=== PATIENT | female | born 2005 | race Caucasian/White ===

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

== ENCOUNTER → 2023-02-13 | Outpatient (CLI) | payer OTHER, SELFPAY ==
--- NOTE | 2023-02-13 15:14 | RAD_ITS ---
INDICATION: pain EXAMINATION/TECHNIQUE: X-RAY - LEFT XR Knee Complete 4 Views COMPARISON: FINDINGS: SOFT TISSUES: No soft tissue swelling or gas. Calcifications at the distal infrapatellar ligament insertion upon the tibial tuberosity. BONES/JOINTS: No acute fracture or subluxation.. Normal alignment. Preservation of the joint space.. No sclerotic or destructive changes observed. RAD/Knee 4 or More Views IMPRESSION: Calcifications at the distal infrapatellar ligament insertion upon the tibial tuberosity. Electronically Signed: Kyle Bragg DO at 15:38 EDT ,
--- NOTE | 2023-02-13 15:15 | RAD_ITS ---
INDICATION: pain EXAMINATION/TECHNIQUE: X-RAY - RIGHT XR Knee Complete 4 Views or More 4 VIEWS COMPARISON: FINDINGS: BONES: No fracture demonstrated. JOINTS: No dislocation. SOFT TISSUES: Unremarkable. RAD/Knee 4 or More Views IMPRESSION: No evidence of fracture. Electronically Signed: Mary Alvarado MD at 7:21 EDT ,
== END | disposition home or self-care (01) ==
LOC: MTRAD 15:14
PROVIDERS: PCP Pediatrics; Referring Provider Orthopaedic Surgery Sports Medicine; Visit Provider Orthopaedic Surgery Sports Medicine
DX: M25.562 Pain in left knee (principal); M25.561 Pain in right knee
CPT/HCPCS: 73564

== ENCOUNTER 2023-03-26 12:00 | Outpatient (RCR) | payer OTHER, SELFPAY ==
--- NOTE | 2023-02-26 19:37 | HP.PTEVAL ---
Patient's Visit Information Visit Information Visit Information: BREANA JOHN is a 17 year old F referred to Physical Therapy by Dr. Hany Moreno MD with a diagnosis of KNEE PAIN RIGHT AND LEFT. Date of Evaluation: 02/26/23 Physical Therapist: Mike Dong, PT, Cert MDT, OCS Visit Plan Frequency: 2x /Week Duration: 4 Weeks Plan: PT INTERVETIONS ECCENTRICS QUADS ,STRENGTHEING HIP /HAMSTRINGS ,FUNCTIONAL STRENGTHENING ,SPORT SIMULATION AND MODALTIES FOR PAIN Subjective Subjective: This 17 y/o female presents to physical therapy with knee pain and left and right . Patient has had knee left > right since October . But pain symptoms worse since January playing softball . Patient was running toward base and hip hard with leg and felt sharp pain. Initially, always c/o ache but during activity running and softball playing was better. Seen Josh did x-rays-. Patient location of pain tendon patella with h/o Whitley Schlatter's. Aggravating running ,weight bearing, squatting and kneeling,. Alleviating factors resting ,ice . General activity with walking and standing okay Denies paresthesia/tingling . Patient sleeping good. Patient had same condition 10 y/o s . Patient pain affects playing softball . Patient goals play softball with no pain. [employer]: [employer] : Softball Pain Left Knee: Pain Intensity (Out of 10): 4 Pain Intensity Range: 10 Right Knee: Pain Intensity (Out of 10): 0 Pain Intensity Range: 10 Objective Objective: POSTURE: mild knee valgus PALPATION: tender patella tendon NEURO: Denies paresthesia/tingling, reflexes intact AROM: 0-140 degrees supine knee flexion pain with OP knee flexion left MMT: ( peak force) quads right 31.2,left 49.8 ,hamstrings 30.3 left ,right 31.2 ,hip abduction right 32.2 ,left 31.8 FLEXABLITY: hamstrings min tight, quads left pain WFL left Special Tests R Knee Fern - Meniscus: Negative R Knee Jessica - ACL: Negative R Knee Anterior Drawer - ACL: Negative R Knee Posterior Drawer - PCL: Negative R Knee Posterior Sag - PCL: Negative R Knee Valgus - MCL: Negative R Knee Patellar Grind - PFS: Negative L Knee Fern - Meniscus: Negative L Knee Jessica - ACL: Negative L Knee Anterior Drawer - ACL: Negative L Knee Pivot Shift - ACL, Ant. Rotator Instability: Negative L Knee Valgus - MCL: Negative L Knee Varus - LCL: Negative L Knee Patellar Grind - PFS: Negative Balance/Special Test Scores Lower Extremity Functional Score: 51 Goals Goal 1:: Patient to be I with HEP for knee Goal Time Frame: 4-6 Weeks Goal 2:: Patient to demonstrate 75 % improvement with decrease pain and softball Goal Time Frame: 4-6 Weeks Goal 3:: Patient to be improve peak force with quads/hamstrings/hip by 10 # to improve function Goal Time Frame: 4-6 Weeks Goal 4:: Patient to improve ;FES score by 10 points to improve function. Goal Time Frame: 4-6 Weeks Goal 5:: Patient to improve sport simulating activity without activity Goal Time Frame: 4-6 Weeks Rehabilitation Potential Physical Therapy Diagnosis: This patient has left knee pain > right with patella tendonitis /tendinosis ,with weakness quads and hips > left than right pain with squatting and running and unable to return to softball thus benefit from skilled PT Rehabilitation Potential: Good Anticipated Interventions Patient/Client Instruction: Educate patient on: Condition and Plan of Care For the Purpose of:: To decrease pain, To increase ROM, To improve muscle performance and motor function, To improve ability to perform ADL's, To improve ability of physical actions for home/community/work/leisure, To improve health of tissue, To decrease soft tissue restriction, To increase flexibility/ROM, To reduce risk of recurrence and To improve tolerance to ADL's Other: RTS Therapeutic Exercise to Include: Strength training, Power training, Endurance training, Balance training, Postural training and Active ROM Comment: QUADS ECCENTRICS For the Purpose of:: To decrease pain, To increase ROM, To improve muscle performance and motor function, To improve ability to perform ADL's, To increase tolerance to activity/condition/position, To improve ability of physical actions for home/community/work/leisure, To improve gait and locomotor functions, To decrease soft tissue restriction, To increase flexibility/ROM, To improve endurance and To prevent re-injury TENS: Yes IF ES: Yes Cryotherapy (ice pack, ice massage): Yes Thermo therapy (hot pack): Yes For the Purpose of:: To decrease pain, To decrease swelling/inflammation, To improve nutrient delivery to tissue, To increase oxygenation perfusion, To decrease soft tissue restriction and To increase flexibility/ROM Text: Thank you for the opportunity to evaluate your patient. For Medicare and Medicare HMO plans, please review the plan of care and approve it. It will need to be FAXED BACK to us at [phone] for Medicare purposes. For Medicare only, by signing this I certify the plan of care. Please let me know if there are questions or concerns regarding this plan of care. Physician Signature: Date:
--- NOTE | 2023-03-26 12:26 | HP.PTDCSUM ---
Discharge Summary D/C summary: It has been my pleasure to treat BREANA JOHN referred by Dr. Hany Moreno MD, with the diagnosis of KNEE PAIN RIGHT AND LEFT for a total of 50 visit(s). Discharge Date: 03/26/23 Please see the following information for a summary of their discharge status. Subjective Subjective: Patient is doing better/ Less tender Pain Left Knee: Pain Intensity (Out of 10): 1 Right Knee: Pain Intensity (Out of 10): 1 Overall Improvement % Improvement: 50 Objective Objective/Function: Objective: POSTURE: mild knee valgus PALPATION: tender patella tendon NEURO: Denies paresthesia/tingling, reflexes intact AROM: 0-140 degrees supine knee flexion pain with OP knee flexion left MMT: ( peak force) quads right 54.1, 45.0,left 49.8 ,hamstrings 53.0 left ,right 62.2 ,hip abduction right 32.2 ,left 31.8 FLEXABLITY: hamstrings min tight, quads left pain WFL left Goals Goal 1:: Patient to be I with HEP for knee Goal Progress: Goal Met Goal 2:: Patient to demonstrate 75 % improvement with decrease pain and softball Goal Progress: Progressing Goal 3:: Patient to be improve peak force with quads/hamstrings/hip by 10 # to improve function Goal Progress: Goal Met Goal 4:: Patient to improve ;FES score by 10 points to improve function. Goal Progress: Goal Met Goal 5:: Patient to improve sport simulating activity without activity Goal Progress: Goal Met Plan Plan: D/C TO HEP D/C Information Discharge Comments: HEP d/c sentence: If there are questions or concerns regarding this patient's physical therapy, please feel free to call me at [phone]. Thank you for the referral of this patient. Sincerely, Mike Dong, PT, Cert MDT, OCS Balance/Gait/Functional tests Balance/Special Test Scores Lower Extremity Functional Score: 72
== END 2023-03-26 13:36 | disposition home or self-care (01) ==
LOC: PT 12:00
PROVIDERS: PCP Pediatrics; Visit Provider Orthopaedic Surgery Sports Medicine
DX: M25.561 Pain in right knee (principal); M25.562 Pain in left knee
CPT/HCPCS: 97110; 97161; 97530

== ENCOUNTER → 2024-07-09 | Outpatient (CLI) | payer OTHER, SELFPAY | END | disposition home or self-care (01) | LOC: LABSPEC 13:51 | PROVIDERS: PCP Pediatrics; Referring Provider Nurse Practitioner Women's Health; Visit Provider Nurse Practitioner Women's Health | DX: Z11.3 Encounter for screening for infections with a predominantly sexual mode of transmission (principal) | CPT/HCPCS: 87491; 87591 ==

== ENCOUNTER 2024-08-26 17:04 | Emergency (ER) | payer OTHER, SELFPAY ==
[2024-08-26] VITALS (9 sets, daily range): BP systolic 92–131; BP diastolic 63–80; PULSE 83–126; RESP 16–97; TEMP 36.9–39; O2SAT 97–99; BMI 26.0
--- NOTE | 2024-08-26 17:42 | EX.ED.DYSGE1 ---
HPI History of Present Illness Chief Complaint: Shortness of Breath Informant: patient Onset/Context/Timing Onset: Today Context: Gradual Onset Timing: Continuous Quality: Aching, sharp Location: Oropharynx, worse over the left Worsened by: Swallowing Relieved by: Nothing Narrative Narrative: Patient presents with sore throat that has been getting worse throughout the day today. Patient states it is constant. Patient went to urgent care and tested positive for RSV. Patient admits to a fever of 102. Patient states her pain is worse over the left side of her throat. Patient states her pain radiates into her left ear. Patient states it feels like she has some swelling in her throat weeks gives her some shortness of breath. Patient admits to nausea but denies any vomiting. Patient was given a prescription for liquid Augmentin but is only taken 1 dose. Patient states that her left tonsil is turning black and blue. [facility] Medical History RSV (acute bronchiolitis due to respiratory syncytial virus) Tonsillitis Bilateral anterior knee pain Left knee pain Right knee pain Knee pain Home Medications ?Medication ?Instructions ?Recorded ?Last Taken ?Type naproxen 500 mg tablet 500 mg PO BID-TID PRN pain #60 tabs 02/16/22 Unknown Rx etonogestrel 0.12 mg-ethinyl 1 vag ring vaginal Q4W #3 ea 07/09/24 Unknown Rx estradiol 0.015 mg/24 hr vaginal ring (NuvaRing) amoxicillin 400 mg-potassium 10 ml PO BID #200 mL 08/26/24 Unknown Rx clavulanate 57 mg/5 mL oral suspension hydrocodone 7.5 mg-acetaminophen 10 ml PO Q6H PRN pain 5 days #200 08/26/24 Unknown Rx 325 mg/15 mL oral solution mL Allergy/AdvReac Type Severity Reaction Status Date / Time No Known Allergies Allergy Verified 08/26/24 17:09 Family History Other Cancer Hypertension Myocardial infarction Social History Smoking Status: Never smoker alcohol intake: never substance use type: does not use caffeine: Yes what type of physical activity do you participate in: walking seatbelt use: always additional social history: Graduated from [employer] Working at [employer] in [place]. [employer]ball [employer] [place] 2021 ROS ROS ED Constitutional Constitutional ED: Denies chills or fever(s) Eyes Eyes: Denies blurry vision or change in vision ENT ENT ED: Reports ear pain left and sore throat; Denies rhinorrhea Cardiovascular Cardiovascular: Denies chest pain or palpitations Respiratory/Chest Respiratory/Chest: Denies cough or dyspnea Gastrointestinal Gastrointestinal: Reports nausea; Denies vomiting Genitourinary Genitourinary ED: Denies dysuria or hematuria Musculoskeletal Musculoskeletal: Denies back pain or neck pain Integumentary Denies abscess or rash Neurologic Neurologic: Denies headache(s) or weakness Allergic/Immunologic Allergic/Immunologic ED: Denies mouth swelling or urticaria EXAM Physical Exam Const Vital Signs: 08/26/24 17:09 08/26/24 17:11 08/26/24 17:34 Temperature 102.1 F H 102.1 F H Temperature Source Oral Oral Pulse Rate 126 H 126 H Respiratory Rate 18 18 Respiratory Effort Normal Respiratory Depth Normal Blood Pressure 126/80 H 126/80 H Blood Pressure Mean 95 95 Pulse Ox 98 98 Oxygen Delivery Method Room Air Room Air 08/26/24 18:08 08/26/24 18:57 08/26/24 19:00 Temperature 102.2 F H 102.2 F H Temperature Source Oral Oral Pulse Rate 107 H 112 H Respiratory Rate 16 18 18 Respiratory Effort Respiratory Depth Blood Pressure 131/75 H 128/78 H Blood Pressure Mean 93 94 Pulse Ox 98 99 98 Oxygen Delivery Method Room Air Room Air 08/26/24 20:00 08/26/24 21:00 08/26/24 21:33 Temperature 98.4 F Temperature Source Oral Pulse Rate 103 H 91 91 Respiratory Rate 97 H Respiratory Effort Respiratory Depth Blood Pressure 114/69 92/71 128/63 H Blood Pressure Mean 84 78 84 Pulse Ox 97 97 Oxygen Delivery Method Room Air Room Air Room Air 08/26/24 22:00 Temperature Temperature Source Pulse Rate 83 Respiratory Rate 18 Respiratory Effort Respiratory Depth Blood Pressure 119/63 Blood Pressure Mean 81 Pulse Ox 97 Oxygen Delivery Method Room Air Positive well nourished and well developed General Appearance ED: well developed and NAD HEENT Reports moist mucous membranes HEENT Narrative: There is ecchymosis over the left tonsil. There are exudates bilaterally. The tonsils are enlarged bilaterally Neck supple and no JVD Neck Narrative: There is tender anterior cervical lymphadenopathy, worse on the left. General: tenderness Resp normal respiratory effort and clear to auscultation bilaterally Cardio regular rhythm Rate: tachycardic GI non-tender and non-distended Palpation: soft Neuro oriented x3, CN's II-XII intact bilaterally and no sensory deficits noted Sensorium / Orientation: alert Motor Exam: strength 5/5 throughout Psych mental status grossly normal MDM MDM MDM Narrative Medical decision making narrative: Differential diagnosis includes peritonsillar abscess, parapharyngeal abscess, strep pharyngitis, dehydration, electrolyte abnormality, and viral pharyngitis. CT scan of the soft tissue neck will be obtained to assess for peritonsillar and parapharyngeal abscess. CBC will be obtained to assess for leukocytosis and anemia. Basic metabolic profile will be obtained to assess for electrolyte abnormality and renal function. Rapid strep will be obtained to assess for strep pharyngitis. His Lab Data Attestation: I reviewed the patient's lab results. Lab results narrative: CBC was reviewed. There is a leukocytosis of 15.2. The remainder is within normal limits. Basic metabolic profile was reviewed and was essentially within normal limits. Labs: Laboratory Results - last 24 hr 08/26/24 17:50 WBC 15.2 H RBC 4.69 Hgb 12.9 Hct 38.7 MCV 82.5 MCH 27.5 MCHC 33.3 RDW Std Deviation 37.4 RDW Coeff of Jesse 12.3 Plt Count 238 MPV 10.1 Immature Gran % (Auto) 0.300 Neut % (Auto) 89.2 H Lymph % (Auto) 6.7 L Pima % (Auto) 3.5 Eos % (Auto) 0.1 Baso % (Auto) 0.2 Absolute Neuts (auto) 13.5 H Absolute Lymphs (auto) 1.02 Nucleated RBC % 0 Sodium 135 L Potassium 3.3 L Chloride 102 Carbon Dioxide 25.0 Anion Gap 8 BUN 6 L Creatinine 0.76 Estim Creat Clear Calc 129.44 Est GFR (MDRD) Af Amer 124 Est GFR (MDRD) Non-Af 102 BUN/Creatinine Ratio 7.9 L Glucose 102 Calcium 9.4 Radiography Diagnostic Testing: Clinical Impression(s) from Imaging Studies Soft Tissue Neck CT 08/26/24 20:14 IMPRESSION: Findings which may be consistent with acute tonsillitis and poorly defined peritonsillar abscesses with cervical lymphadenitis. . Clinical correlation is recommended Electronically Signed: Curt Dalal MD at 20:59 EST , CT scan of the soft tissue neck was obtained. There are findings consistent with acute tonsillitis and cervical lymphadenitis. There is several areas of low-attenuation possibly representing peritonsillar abscesses. This was interpreted by the radiologist and was also independently reviewed by myself. Treatment and Re-Evaluation :: Patient was given IV fluids, morphine, and Unasyn. Patient was given a dose of Tylenol for her fever. Patient was feeling somewhat better on reevaluation. On reevaluation, there is no increase in size or discoloration of the tonsils. Airway is still patent. Patient and mother were advised of the findings. Patient was instructed to continue her Augmentin as prescribed until gone. Patient was given a prescription for hydrocodone/acetaminophen elixir. Patient was instructed to take this as needed for pain. Patient was instructed to follow-up with ENT in 1 to 2 weeks. Patient was instructed to return if worse in any way. Patient understood and was agreeable with the plan. All questions were answered. Discharge Plan Triage Chief Complaint: Shortness of Breath ED Provider: Reg Mon Dx/Rx/DC Orders Clinical Impression: Tonsillitis, RSV (acute bronchiolitis due to respiratory syncytial virus) Instructions: ED Tonsillitis Prescriptions: New hydrocodone-acetaminophen 7.5-325 mg/15 mL solution 10 ml PO Q6H PRN (Reason: pain) 5 Days Qty: 200 0RF No Action naproxen 500 mg tablet 500 mg PO BID-TID PRN (Reason: pain) Qty: 60 6RF Rx Instructions: administer with food or milk etonogestrel-ethinyl estradiol [NuvaRing] 0.12-0.015 mg/24 hr ring 1 vag ring vaginal Q4W Qty: 3 4RF Rx Instructions: leave in place for 3 weeks of a 4-week cycle amoxicillin-pot clavulanate 400-57 mg/5 mL suspension for reconstitution 10 ml PO BID Qty: 200 0RF Primary Care Provider: Preethi Mark Referrals: Saud Nelson MD [Med Staff - Active Staff] - 1-2 Weeks Cat Whitt MD [Non-Staff] - Activity Restrictions/Additional Instructions: Continue your antibiotics as prescribed until gone Print Language: Chinese Disposition Disposition: Home, Self Care
[2024-08-26] MEDS: Ampicillin/Sulbactam 3 GM in 0.9% Normal Saline (100mL MB+) 100 ML IV (17:57)
[2024-08-26] MEDS: 0.9% Normal Saline (1000mL) 1,000 ML 1000 ML IV (17:57)
[2024-08-26] MEDS: Morphine 4 MG/ML Syringe IV ×2 (17:57→22:40)
[2024-08-26 17:58] LABS: Absolute Lymphocyte Count 1.02 X10^3/uL (0.83-4.51); Absolute Neutrophil Count 13.5 X10^3/uL (2.0-7.7); Basophil# 0.03 X10^3/uL; Basophil% 0.2 % (0-1); Eosinophil# 0.01 X10^3/uL; Eosinophils% 0.1 % (0-5); Hematocrit 38.7 % (37-47); Hemoglobin 12.9 g/dL (12.0-15.0); Lymphocyte # 1.02 X10^3/ul (0.83-4.51); Lymphocyte % 6.7 % (19-41); Mean Corp Hgb Conc 33.3 g/dL (32-36); Mean Corpuscular Hgb 27.5 pg (27.0-32.0); Mean Corpuscular Volume 82.5 fL (81-99); Mean Platelet Vol. 10.1 fl (6.2-12.0); Monocyte# 0.53 X10^3/uL; Monocyte% 3.5 % (0-10); NRBC Flagged by Analyzer 0 % (0-5); Neutrophil # 13.52 X10^3/uL (2.7-7.7); Neutrophil % 89.2 % (47-70); Platelet Count 238 K/mm3 (150-450); RBC Distribution Width CV 12.3 % (11.6-14.6); RBC Distribution Width SD 37.4 fl (35.1-43.9); Red Blood Count 4.69 M/mm3 (4.2-5.4); White Blood Count 15.2 K/mm3 (4.4-11.0)
[2024-08-26 18:11] LABS: Anion Gap 8 (5-15); BUN 6 mg/dL (7-18); BUN/Creat Ratio 7.9 RATIO (10-20); Calcium,Total 9.4 mg/dL (8.5-10.1); Chloride 102 mmol/L (98-107); Creatinine, Serum 0.76 mg/dL (0.55-1.02); EST Glomerular Filtration Rate 102 mL/min (>60); Est Glom Filt Rate - Afr Amer 124 mL/min (>60); Estimated Creatinine Clearance 129.44 ml/min; Glucose 102 mg/dL (74-106); Potassium 3.3 mmol/L (3.5-5.1); Sodium Level 135 mmol/L (136-145)
[2024-08-26] MEDS: Acetaminophen 160 MG/5 ML UDC 650 MG PO (19:00)
--- NOTE | 2024-08-26 20:13 | ED.RN ---
Patient transported to CT
--- NOTE | 2024-08-26 20:14 | CT_ITS ---
STUDY: CT SOFT TISSUE NECK WITH CONTRAST REASON FOR EXAM: Female, 18 years old. odynophasia RADIATION DOSAGE (If Supplied By Facility): CTDIvol = ( 13.89 ) mGy, DLP = ( 416.44 ) mGycm TECHNIQUE: The patient was scanned in a multi-detector CT scanner. High resolution transaxial imaging was performed following intravenous administration of IV 75mL Isovue-370. Sagittal and coronal images were reconstructed. Individualized dose optimization techniques were used for this CT. COMPARISON: None. FINDINGS: Normal bilateral parotid glands. Normal bilateral pr intern spaces. Normal bilateral parapharyngeal spaces. Normal bilateral carotid spaces. Normal bilateral sublingual and submandibular glands and spaces. Normal visualized nasopharynx. Normal retropharyngeal space. Normal perivertebral space. There is prominence of the tonsillar pillars bilaterally slightly larger on the left which also demonstrates subtle areas of low attenuation possibly representing peritonsillar abscesses. The visualized tongue, tongue base and oropharynx are normal. There are mildly enlarged parapharyngeal and posterior triangle nodes bilaterally larger on the left the largest measuring between 1.5 and 2 cm likely inflammatory in nature. . Normal epiglottis, bilateral vallecula and hypopharynx. The pre-epiglottic and paraglottic adipose spaces are normal. Normal visualized bilateral piriform sinuses, aryepiglottic folds, vocal cords, and arytenoid-cricoid articulations. Normal subglottic trachea. Normal bilateral lobes of the thyroid gland. Normal visualized pulmonary apices. Normal visualized paranasal sinuses. Normal visualized cervical spine. CT/Soft Tissue Neck WITH Contrast IMPRESSION: Findings which may be consistent with acute tonsillitis and poorly defined peritonsillar abscesses with cervical lymphadenitis. . Clinical correlation is recommended Electronically Signed: Curt Dalal MD at 20:59 EST ,
== END 2024-08-26 22:51 | disposition home or self-care (01) ==
PROVIDERS: Emergency Provider Emergency Medicine; PCP Family Medicine; Visit Provider Emergency Medicine
DX: J21.0 Acute bronchiolitis due to respiratory syncytial virus (principal); J03.90 Acute tonsillitis, unspecified
CPT/HCPCS: 70491; 80048; 85025; 87651; 96361; 96365; 96375; 96376; 99283; Q9967; A4216; J0295

== ENCOUNTER → 2024-08-26 | Outpatient (CLI) | payer OTHER, SELFPAY | END | disposition home or self-care (01) | LOC: LABSPEC 12:22 | PROVIDERS: PCP Pediatrics; Referring Provider Physician Assistant; Visit Provider Physician Assistant | DX: J03.90 Acute tonsillitis, unspecified (principal) | CPT/HCPCS: 87070; 87077 ==